=== PATIENT | male | born 1995 ===

== ENCOUNTER 2018-05-03 22:25 | Emergency (ER) | payer OTHER ==
[2018-05-03] MEDS ORDERED: HYDROCODONE/APAP 5/325 TAB PO ONE ×2 (23:02→23:28)
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
[2018-05-04 01:11] VITALS: BP 110/51
[2018-05-04] MEDS ORDERED: HYDROCOD/APAP 5/325 PREPACK#6 BTL TAKEHOME ONE (01:26)
== END 2018-05-04 01:55 | disposition home or self-care (01) ==
PROC: 2W3QX1Z Immobilization of Right Lower Leg using Splint (ICD-10-PCS; principal; 2018-05-03)
DX: M25.571 Pain in right ankle and joints of right foot (principal); W51.XXXA Accidental striking against or bumped into by another person, initial encounter; Y99.9 Unspecified external cause status; Y92.322 Soccer field as the place of occurrence of the external cause; Y93.66 Activity, soccer